=== PATIENT | female | born 1990 | race African-American/Black ===

== ENCOUNTER 2017-04-27 18:46 | Emergency (ER) | payer MEDICAID ==
[~2017-04-27] VITALS: Ht 165.1 cm; Wt 66.0 kg
[2017-04-28] MEDS ORDERED: LIDOCAINE HCL 1% 20ML VIAL (Pyxis) INJ INFIL ONE (00:15)
[2017-04-28] MEDS ORDERED: TETANUS, DIPHTHERIA, PERTUSSIS VAC/PF 0.5ML (>7YR OLD) IM ONE (00:15)
[2017-04-28] MEDS ORDERED: KETOROLAC 60MG/2ML VIAL IM ONE (02:45)
[2017-04-28 03:00] VITALS: BP 120/75
== END 2017-04-28 04:30 | disposition left against medical advice (07) ==
LOC: ER 22:20
DX: S06.0X1A Concussion with loss of consciousness of 30 minutes or less, initial encounter (principal); S01.511A Laceration without foreign body of lip, initial encounter; Y93.89 Activity, other specified; V43.52XA Car driver injured in collision with other type car in traffic accident, initial encounter; Y92.410 Unspecified street and highway as the place of occurrence of the external cause; Z23 Encounter for immunization
CPT/HCPCS: 12014; 96372; 99284; J1885; J3490; X7700; Z7610; 90715